=== PATIENT | male | born 1975 | race Caucasian/White ===

== ENCOUNTER 2022-03-04 20:39 | Observation (INO) | payer OTHER ==
[2022-03-04] MEDS ORDERED: SODIUM CHLORIDE 0.9% 1,000 ML IV STA (21:17)
[2022-03-04] MEDS ORDERED: ASPIRIN 325 MG TAB PO STA (21:18)
[2022-03-04 21:38] LABS: ALT 49 U/L (4-49); AST 74 U/L (17-59); African American GFR (CKD) >90 (>60 ml/min/1.73 sqM); Albumin 3.4 g/dL (3.5-5.0); Alkaline Phosphatase 90 U/L (38-126); Anion Gap 7 mmol/L; Blood Urea Nitrogen 18 mg/dL (9-20); Calcium 8.1 mg/dL (8.4-10.2); Carbon Dioxide 25 mmol/L (22-30); Chloride 104 mmol/L (98-107); Glucose 96 mg/dL (74-99); Magnesium 1.8 mg/dL (1.6-2.3); Non-African American GFR(CKD) >90 (>60 ml/min/1.73 sqM); Sodium 136 mmol/L (137-145); Total Bilirubin 0.6 mg/dL (0.2-1.3); Total Protein 6.3 g/dL (6.3-8.2)
[2022-03-04 21:39] LABS: Basophils % (A) 1 %; Eosinophils # (A) 0.1 k/uL (0-0.7); Eosinophils % (A) 2 %; HCT 38.7 % (39.0-53.0); HGB 12.4 gm/dL (13.0-17.5); Hypochromasia Slight; Lymphocytes # (A) 0.8 k/uL (1.0-4.8); Lymphocytes % (A) 22 %; MCH 27.6 pg (25.0-35.0); MCHC 31.9 g/dL (31.0-37.0); MCV 86.3 fL (80.0-100.0); Monocytes # (A) 0.2 k/uL (0-1.0); Monocytes % (A) 6 %; Neutrophils # (A) 2.5 k/uL (1.3-7.7); Neutrophils % (A) 68 %; Platelet Count 273 k/uL (150-450); RBC 4.49 m/uL (4.30-5.90); RDW 14.3 % (11.5-15.5); WBC 3.7 k/uL (3.8-10.6)
[2022-03-04 21:43] LABS: INR 0.9 (<1.2); Prothrombin Time 9.9 sec (9.0-12.0)
[2022-03-04 21:55] LABS: Potassium 5.1 mmol/L (3.5-5.1)
[2022-03-04 22:19] LABS: Partial Thromboplastin Time 20.5 sec (22.0-30.0)
--- NOTE | 2022-03-04 22:35 | XR ---
EXAMINATION TYPE: XR chest 2V DATE OF EXAM: 03/04/2022 COMPARISON: NONE HISTORY: Chest pain TECHNIQUE: 2 views FINDINGS: Heart and mediastinum are normal. Lungs are clear. Bony thorax is intact. There is some el evation of the right diaphragm. IMPRESSION: Elevated right diaphragm could relate to partial paralysis. Normal heart.
--- NOTE | 2022-03-04 22:56 | US ---
EXAMINATION TYPE: US venous doppler duplex LE RT DATE OF EXAM: 03/04/2022 10:47 PM COMPARISON: NONE CLINICAL HISTORY: IV drug use, palpable vein. Redness and warmth in right calf after drug use. SIDE PERFORMED: Right TECHNIQUE: The lower extremity deep venous system is examined utilizing real time linear array sonog silvia with graded compression, doppler sonography and color-flow sonography. VESSELS IMAGED: Common Femoral Vein Deep Femoral Vein Greater Saphenous Vein * Femoral Vein Popliteal Vein Small Saphenous Vein * Proximal Calf Veins (* superficial vessels) Right Leg: No evidence for DVT. Thrombus seen in the GSV distal thigh to mid calf, farther than 2 cm from the deep system. IMPRESSION: No evidence of deep vein thrombosis. There is superficial vein thrombosis in the long sap henous vein.
[2022-03-04] MEDS ORDERED: NALOXONE 0.4 MG/ML 1 ML VIAL IV PRN (23:09)
[2022-03-04] MEDS: SODIUM CHLORIDE 0.9% 1,000 ML IV SCH (23:30)
--- NOTE | 2022-03-05 03:35 | P.HPIM ---
History of Present Illness H&P Date: 03/04/22 The patient is a 46-year-old male with a PMH of polysubstance abuse, and multiple MIs with no stents who presents to the emergency room with complaints of chest discomfort. The patient states that he had presented to [facility] earlier today due to his multi-substance use including heroin, methamphetamine, fentanyl, and methadone, but was advised to go to the emergency room to be eval uated for chest discomfort. Patient reports that he began having the discomfort earlier today. He reports his last substance use was yesterday where he injected heroin and methamphetamine and possible cocaine use. Patient reported chest discomfort 5 out of 10, substernal, pressure-like, nonradiating, lasted for about an hour and then resolved spontaneously. Denied associated symptoms including nausea, shortness of breath, dizziness. The patient did report swelling and pain over his right leg, at the side of his IV drug injection yesterday. Denies fever, chills, cough, abdominal pain, diarrhea. Chest x-ray revealed an elevated right hemidiaphragm with possible paralysis with EKG showin g sinus rhythm at [address]/T-wave changes are as reviewed by me. Lower extremity Doppler did reveal a superficial vein thrombosis in the long saphenous vein of the right lower extremity. Laboratory evaluation revealed an AST of 74, and WBC count 3.7. Review of systems: Pertinent positives and negatives as discussed in HPI, a complete review of systems was performed and all other systems are negative. Physical examination: General: non toxic, no distress, appears at stated age, normal weight Derm: no unusual rashes/lesions, warm Head: atraumatic, normocephalic, symmetric Eyes: EOMI, no lid lag, anicteric sclera, pupils equal round reactive to light ENT: Nose and ears atraumatic Neck: No cervical lymphadenopathy, trachea midline, supple Mouth: no lip lesion, mucus membranes moist Cardiovascular: S1S2 reg, no murmur, positive dorsalis pedis pulse bilateral, no edema Lungs: CTA bilateral, no rhonchi, no rales, no accessory muscle use Abdominal: soft, nontender to palpation, no guarding Ext: muscle strength 5 out of 5 in all 4 extremities grossly, no gross muscle atrophy, no contractures, Neuro: CN II-XI grossly intact, no gross focal neuro deficits Psych: Alert, oriented, appropriate affect Assessment/plan Chest pain, rule out ACS -Cardiology consult -Cardiac monitoring -Trend troponin -Echocardiogram -Continue aspirin, statin Right lower extremity superficial phlebitis -Warm compresses -Pain control Polysubstance abuse -Advised on importance of cessation -Monitor for signs of withdrawal DVT prophylaxis -Heparin subcu The patient is admitted with an anticipated [] than 2 midnight stay for evaluation of []. CODE STATUS: Full Code Discussed with: Patient Anticipated discharge date: [] Anticipated discharge place: Home Past Medical History - Past Family History Father Family Medical History: Coronary Artery Disease (CAD) Medications and Allergies Allergies Allergy/AdvReac Type Severity Reaction Status Date / Time quetiapine [From Seroquel] Allergy Severe Unknown Verified 03/04/22 21:26 diphenhydramine Allergy Intermediate Rapid Verified 03/04/22 21:26 [From Benadryl] Heart Rate Physical Exam Vitals: Vital Signs Temp Pulse Resp BP Pulse Ox 03/04/22 20:49 98.1 F 81 18 143/82 100 Intake and Output 03/04/22 03/04/22 03/05/22 14:59 22:59 06:59 Other: Weight 81.193 kg Results CBC & Chem 7: 03/04/22 21:19 03/04/22 21:19 Labs: Abnormal Lab Results - Last 24 Hours (Table) 03/04/22 03/04/22 03/04/22 Range/Units 21:19 21:19 21:19 WBC 3.7 L (3.8-10.6) k/uL Hgb 12.4 L (13.0-17.5) gm/dL Hct 38.7 L (39.0-53.0) % Lymphocytes # 0.8 L (1.0-4.8) k/uL APTT 20.5 L (22.0-30.0) sec Sodium 136 L (137-145) mmol/L Calcium 8.1 L (8.4-10.2) mg/dL AST 74 H (17-59) U/L Albumin 3.4 L (3.5-5.0) g/dL
[2022-03-05] MEDS: ATORVASTATIN 80 MG TAB PO SCH ×2 (03:41→20:03)
[2022-03-05] MEDS ORDERED: CAFFEINE CITRATE 60 MG/3 ML VIAL IV PRN (08:05)
[2022-03-05] MEDS ORDERED: AMINOPHYLLINE 500 MG/20 ML VIAL IV PRN (08:05)
[2022-03-05] MEDS ORDERED: REGADENOSON 0.4 MG/5 ML SYRINGE IV PRN (08:05)
--- NOTE | 2022-03-05 08:13 | P.CRDCN ---
History of Present Illness History of present illness: HISTORY OF PRESENTING ILLNESS This is a pleasant 46-year-old with past medical history significant for family history of CAD, tobacco abuse, meth use, IV heroin use who presents secondary ch est pain for the last few years. He states he will get substernal chest pain associated with some diaphoresis and shortness breath usually lasting anywhere from 5-45 minutes. Sometimes this can be associated with exertion such as yesterday when he was walking up a flight of stairs. It occasionally radiates into his jaws. It can however occur when he is just sitting there. Denies any obvious association with IV drug use. Denies any fevers, chills. He does have family history of mom having multiple stents in her 40s and father dying of a heart attack in his 50s. He has not had prior workup before and symptoms have been getting somewhat worse and therefore resented to emergency department. Troponin 0.016 and less than 0.0122. EKG showing sinus rhythm with no significant ST or T wave inversions. REVIEW OF SYSTEMS At the time of my exam: CONSTITUTIONAL: Denies fever or chills. CARDIOVASCULAR: +chest pain, no shortness of breath, orthopnea, PND or palpitations. RESPIRATORY: Denies cough. GASTROINTESTINAL: Denies abdominal pain, diarrhea, constipation, nausea or vomiting. MUSCULOSKELETAL: Denies myalgias. NEUROLOGIC: Denies numbness, tingling or weakness. ENDOCRINE: Denies fatigue, weight change, polydipsia or polyurina. GENITOURINARY: Denies burning, hematuria or urgency with micturation. HEMATOLOGIC: Denies history of anemia or bleeding. PHYSICAL EXAMINATION Vital signs reviewed. CONSTITUTIONAL: No apparent distress. HEENT: Head is normocephalic. Pupils are equal, round. Sclerae anicteric. Mucous membranes of the mouth are moist. No JVD. No carotid bruit. CHEST EXAMINATION: Lungs are clear to auscultation. No chest wall tenderness is noted on palpation or with deep breathing. HEART EXAMINATION: Regular rate and rhythm. S1, S2 heard. No murmurs, gallops or rub. ABDOMEN: Soft, nontender. Positive bowel sounds. EXTREMITIES: 2+ peripheral pulses, no lower extremity edema and no calf tenderness. NEUROLOGIC EXAMINATION: Patient is awake, alert and oriented x3. ASSESSMENT 1. Atypical chest pain however some typical symptoms with exertion and with associated diaphoresis and shortness breath 2. Tobacco abuse 3. IV heroin use 4. Meth use 5. Family history of CAD PLAN Patient having some typical and some atypical symptoms. Troponin noted to be no rmal and EKG unrevealing. We will check echo to rule out any structural heart disease as well as any valvular disease with his history of IV drug use. We will check a Lexiscan stress test as he feels he cannot walk on treadmill. Discussed tobacco cessation, drug cessation. Further recommendations to follow. Past Medical History - Past Family History Father Family Medical History: Coronary Artery Disease (CAD) Medications and Allergies Home Medications Medication Instructions Recorded Confirmed Type Cephalexin [Keflex] 500 mg PO Q6HR 03/05/22 03/05/22 History Methadone [Dolophine] 40 mg PO DAILY 03/05/22 03/05/22 History Venlafaxine HCl [Effexor XR] 150 mg PO DAILY 03/05/22 03/05/22 History carBAMazepine [TEGretol] 400 mg PO TID 03/05/22 03/05/22 History Allergies Allergy/AdvReac Type Severity Reaction Status Date / Time quetiapine [From Seroquel] AdvReac Severe restlessnes Verified 03/05/22 07:12 s diphenhydramine AdvReac Intermediate Rapid Verified 03/05/22 07:09 [From Benadryl] Heart Rate Physical Exam Vitals: Vital Signs Temp Pulse Pulse Resp BP Pulse Ox 03/05/22 06:51 141/102 03/05/22 06:45 57 L 12 168/106 97 03/05/22 04:21 63 03/05/22 03:53 60 16 143/95 97 03/05/22 01:49 61 18 130/86 98 03/05/22 00:08 64 16 128/65 96 03/04/22 20:49 98.1 F 81 18 143/82 100 Intake and Output 03/04/22 03/05/22 03/05/22 22:59 06:59 14:59 Other: Weight 81.193 kg Results 03/04/22 21:19 03/04/22 21:19 Cardiac Enzymes 03/04/22 03/04/22 03/05/22 Range/Units 21:19 21:19 02:47 AST 74 H (17-59) U/L Troponin I 0.016 <0.012 (0.000-0.034) ng/mL 03/05/22 Range/Units 05:11 AST (17-59) U/L Troponin I <0.012 (0.000-0.034) ng/mL Coagulation 03/04/22 Range/Units 21:19 PT 9.9 (9.0-12.0) sec APTT 20.5 L (22.0-30.0) sec CBC 03/04/22 Range/Units 21:19 WBC 3.7 L (3.8-10.6) k/uL RBC 4.49 (4.30-5.90) m/uL Hgb 12.4 L (13.0-17.5) gm/dL Hct 38.7 L (39.0-53.0) % Plt Count 273 (150-450) k/uL Comprehensive Metabolic Panel 03/04/22 Range/Units 21:19 Sodium 136 L (137-145) mmol/L Potassium 5.1 (3.5-5.1) mmol/L Chloride 104 (98-107) mmol/L Carbon Dioxide 25 (22-30) mmol/L BUN 18 (9-20) mg/dL Creatinine 0.66 (0.66-1.25) mg/dL Glucose 96 (74-99) mg/dL Calcium 8.1 L (8.4-10.2) mg/dL AST 74 H (17-59) U/L ALT 49 (4-49) U/L Alkaline Phosphatase 90 (38-126) U/L Total Protein 6.3 (6.3-8.2) g/dL Albumin 3.4 L (3.5-5.0) g/dL Current Medications Generic Name Dose Route Start Last Admin Trade Name Freq PRN Reason Stop Dose Admin Atorvastatin Calcium 80 mg 03/05/22 03:34 03/05/22 03:41 Atorvastatin 80 Mg Tab PO Not Given HS MANNY Heparin Sodium (Porcine) 5,000 unit 03/05/22 08:00 Heparin Sodium,Porcine/Pf 5,000 Unit/0.5 Ml Syringe SQ Q8HR MANNY Sodium Chloride 1,000 mls @ 75 mls/hr 03/04/22 23:15 03/04/22 23:30 Saline 0.9% IV 75 mls/hr .[id number] MANNY Administration Naloxone HCl 0.2 mg 03/04/22 23:09 Naloxone 0.4 Mg/Ml 1 Ml Vial IV Q2M PRN Opioid Reversal Intake and Output 03/04/22 03/05/22 03/05/22 22:59 06:59 14:59 Other: Weight 81.193 kg 03/04/22 21:19 03/04/22 21:19
--- NOTE | 2022-03-05 12:10 | NM ---
EXAMINATION TYPE: NM stress lexiscan cardiolite DATE OF EXAM: 03/05/2022 COMPARISON: NONE HISTORY: 46-year-old male with chest pain TECHNIQUE: After the intravenous administration of 9.3 mCi Tc 99m Sestamibi - Cardiolite resting SPE CT images acquired 70 minutes post injection. The patient received 0.4mg Lexiscan, 25.7 mCi Tc 99m Sestamibi - Stress images obtained [address] injection FINDINGS: Review of stress and rest SPECT images demonstrates decreased perfusion along the mid to basal inferi or and inferoseptal wall on stress. The finding is not corroborated on Polar maps. Gated analysis jett ws normal wall motion with an estimated left ventricular ejection fraction of 48 %. TID is borderlin e elevated at 1.15. IMPRESSION: Equivocal reversibility along the mid to basal inferior and inferoseptal wall as there is no corrobor ating defect on the polar maps. Given that LVEF is mildly diminished at 48% and TID is borderline zana vated, consider further evaluation as clinically indicated.
[2022-03-05] MEDS: HEPARIN SODIUM,PORCINE/PF 5,000 UNIT/0.5 ML SYRINGE SQ SCH ×2 (12:15→15:35)
[2022-03-05] MEDS: METHADONE 10 MG TAB PO SCH (12:32)
[2022-03-05] MEDS: SODIUM CHLORIDE 0.9% 1,000 ML IV SCH (12:35)
[2022-03-05] MEDS: VENLAFAXINE HCL ER 150 MG CAP PO SCH (12:35)
--- NOTE | 2022-03-05 12:47 | CA ---
Lexiscan Nuclear Stress Test Report Name: Yosef Garza Exam Date: 03/05/2022 10:23 Exam Location: [facility] Stress Ht (in): 74 Wt (lb): 180 BSA: 2.08 Ordering Phys: Ed Braswell DO Referring Phys: TOBY, Technologist: Garrison Montgomery Age: 46 Gender: M : 1975 Procedure CPT: Indications: Reflex order-Stress test ICD-10 Codes: Patient History: Chest Pain and Vertigo Medications: Meds past 24 hrs: Pretest Chest Pain: STRESS TEST Lexiscan Protocol Exercise Duration (min:sec): 01:[address] Depressions (mm): Angina Score: Benedict Score: Resting HR (bpm): 62 Peak HR (bpm): 115 Resting BP (mmHg): 135 / 94 Peak BP (mmHg): 148 / 94 MPHR: 176 Target HR: 150 % MPHR: 65 METS: 1.0 Total Dose: Peak Dose: Atropine: Double Product: 28500 BP Response: Stress Termination: INFUSION COMPLETE Stress Symptoms: DIFFICULTY IN BREATHING Stress Summary: ECG ANALYSIS Resting ECG: Stress ECG: CONCLUSIONS At baseline EKG showed normal sinus rhythm, normal axis, no significant ST or T wave abnormalities. Patient recieved IV infusion of Lexiscan 0.4mg and at peak infusion EKG showed no significant change from baseline. Conclusions: 1. Normal EKG response to Lexiscan infusion 2. Nuclear imaging to be reported separately. Dr. Ed Braswell DO (Electronically Signed) Final Date: 05 March 2022 12:46
--- NOTE | 2022-03-05 13:53 | P.PN ---
Subjective Progress Note Date: 03/05/22 Principal diagnosis: chest pain Hospital Course: 46-year-old male with history of polysubstance abuse, IV drug use and multiple drug-induced MIs presenting with chest pain. His last substance use yesterday when he took heroin and methamphetamine and possible cocaine. Shortly after patient started to have chest discomfort which was substernal, pressure-like, nonradiating. The chest pain has now resolved. Chest x-ray showed elevated right hemidiaphragm with possible paralysis. EKG showed normal sinus rhythm without ST/T-wave abnormalities. Lower extremity Dopplers showed no evidence of DVT, but showed superficial vein thrombosis in long saphenous vein. Cardiology was consulted. Initial troponin was 0.016, and next 2 troponins were negative. Lexiscan stress test showed equivocal reversibility along the mid to basal inferior and inferior septal wall. LVEF mildly diminished at 48% and TID borderline elevated. Patient denies any further chest pain at the moment. Subjective: Patient seen and examined at bedside. No acute events overnight. She denies any further chest pain. He denies any palpitations, shortness of breath, abdominal pain. Pertinent positives and negatives as discussed above, a complete review of systems was performed and all other systems are negative. Vitals Signs Reviewed. General: nontoxic, no distress, appears at stated age Derm: warm, dry Head: atraumatic, normocephalic, symmetric Eyes: EOMI, no lid lag, anicteric sclera Mouth: no lip lesion, mucus membranes moist Cardiovascular: S1S2 reg, no murmur Lungs: CTA bilateral, no rhonchi, no rales , no accessory muscle use Abdominal: soft, nontender to palpation, no guarding, no appreciable organomegaly Ext: no gross muscle atrophy, no edema, no contractures Neuro: CN II-XI grossly intact, no focal neuro deficits Psych: Alert, oriented, appropriate affect Assessment and Plan: Chest pain, rule out ACS -Likely in the setting of substance abuse -Troponin negative -Telemetry -Echo pending -Cardiology consult -Lexiscan stress test abnormal - pending further radiology recommendations -Patient currently chest pain-free Right lower extremity superficial vein thrombosis -Likely in the setting of IV drug use -Warm compress -Pain control Polysubstance abuse -Counseled regarding cessation -Monitor for signs of withdrawal DVT ppx: Subcu heparin Code status: Full code Anticipated discharge place: Home Anticipated discharge time: Tomorrow Objective - Vital Signs Vital signs: Vital Signs Temp 98.7 F 03/05/22 12:21 Pulse 64 03/05/22 12:21 Resp 15 03/05/22 12:21 BP 135/91 03/05/22 12:21 Pulse Ox 99 03/05/22 12:21 FiO2 Intake & Output 03/04/22 03/05/22 03/05/22 18:59 06:59 18:59 Output Total 300 Balance -300 Weight 81.193 kg 81.193 kg Output: Urine 300 Other: Voiding Method Urinal - Labs CBC & Chem 7: 03/04/22 21:19 03/04/22 21:19 Labs: Abnormal Lab Results - Last 24 Hours (Table) 03/04/22 03/04/22 03/04/22 Range/Units 21:19 21:19 21:19 WBC 3.7 L (3.8-10.6) k/uL Hgb 12.4 L (13.0-17.5) gm/dL Hct 38.7 L (39.0-53.0) % Lymphocytes # 0.8 L (1.0-4.8) k/uL APTT 20.5 L (22.0-30.0) sec Sodium 136 L (137-145) mmol/L Calcium 8.1 L (8.4-10.2) mg/dL AST 74 H (17-59) U/L Albumin 3.4 L (3.5-5.0) g/dL
[2022-03-06] MEDS: SODIUM CHLORIDE 0.9% 1,000 ML IV SCH ×2 (00:06→16:50)
[2022-03-06] MEDS: HEPARIN SODIUM,PORCINE/PF 5,000 UNIT/0.5 ML SYRINGE SQ SCH ×3 (00:06→17:14)
--- NOTE | 2022-03-06 07:11 | CA ---
Transthoracic Echo Report Name: Yosef Garza Age: 46 Gender: M : 1975 Exam Date: 03/05/2022 14:06 Exam Location: [facility] Echo Ht (in): 72 Wt (lb): 179 Ordering Physician: Joan Hawley MD Attending/Referring Phys: Glove Brusher Gail Ochoa RDCS Procedure CPT: Indications: Chest Pain Cardiac Hx: Technical Quality: Technically difficult study Contrast 1: Total Dose (mL): Contrast 2: Total Dose (mL): MEASUREMENTS (Male / Female) Normal Values 2D ECHO LV Diastolic Diameter PLAX 4.3 cm 4.2 - 5.9 / 3.9 - 5.3 cm LV Systolic Diameter PLAX 2.6 cm IVS Diastolic Thickness 1.1 cm 0.6 - 1.0 / 0.6 - 0.9 cm LVPW Diastolic Thickness 0.8 cm 0.6 - 1.0 / 0.6 - 0.9 cm LV Relative Wall Thickness 0.4 LA Volume 84.4 cm??? 18 - 58 / 22 - 52 cm??? M-MODE Aortic Root Diameter MM 3.4 cm LA Systolic Diameter MM 1.8 cm LA Ao Ratio MM 0.5 AV Cusp Separation MM 2.4 cm DOPPLER AV Peak Velocity 75.2 cm/s AV Peak Gradient 2.3 mmHg LVOT Peak Velocity 61.7 cm/s LVOT Peak Gradient 1.5 mmHg MV Area PHT 2.6 cm??? Mitral E Point Velocity 75.2 cm/s Mitral A Point Velocity 55.5 cm/s Mitral E to A Ratio 1.4 MV Deceleration Time 293.1 ms FINDINGS Left Ventricle Mildly increased left ventricular wall thickness. Normal left ventricular systolic function with no obvious regional wall motion abnormalities. Left ventricular ejection fraction is estimated at 50-55 %. Right Ventricle Right ventricle not well visualized. Right Atrium Right atrium not well visualized. Left Atrium Moderate left atrial dilatation. Mitral Valve Mild mitral regurgitation. Aortic Valve No aortic valve stenosis or regurgitation. Tricuspid Valve Tricuspid valve not well visualized. Pulmonic Valve Pulmonic valve not well visualized. Pericardium No pericardial effusion. Aorta Normal size aortic root and proximal ascending aorta. CONCLUSIONS Previewed by: Dr. Ed Braswell DO (Electronically Signed) Final Date: 06 March 2022 07:10
[2022-03-06] MEDS: METHADONE 10 MG TAB PO SCH (07:49)
[2022-03-06] MEDS: VENLAFAXINE HCL ER 150 MG CAP PO SCH (07:50)
[2022-03-06] MEDS ORDERED: NITROGLYCERIN SL TABS 0.4 MG TAB SUBLINGUAL PRN (08:10)
[2022-03-06] MEDS ORDERED: ASPIRIN 325 MG TAB PO STA (08:10)
[2022-03-06] MEDS ORDERED: ATORVASTATIN 80 MG TAB PO STA (08:10)
[2022-03-06] MEDS ORDERED: ALPRAZolam 0.25 MG TAB PO PRN (08:10)
[2022-03-06] MEDS: SODIUM CHLORIDE 0.9% 1,000 ML in EMPTY BAG 1 BAG IV SCH ×2 (08:15→19:41)
--- NOTE | 2022-03-06 09:38 | P.PN ---
Subjective Progress Note Date: 03/06/22 HISTORY OF PRESENT ILLNESS: This is a pleasant 46-year-old with past medical history significant for family history of CAD, tobacco abuse, meth use, IV heroin use who presents secondary chest pain for the last few years. He states he will get substernal chest pain associated with some diaphoresis and shortness breath usually lasting anywhere from 5-45 minutes. Sometimes this can be associated with exertion such as yesterday when he was walking up a flight of stairs. It occasionally radiates into his jaws. It can however occur when he is just sitting there. Denies any obvious association with IV drug use. Denies any fevers, chills. He does have family history of mom having multiple stents in her 40s and father dying of a heart attack in his 50s. He has not had prior workup before and symptoms have been getting somewhat worse and therefore resented to emergency department. Troponin 0.016 and less than 0.0122. EKG showing sinus rhythm with no significant ST or T wave inversions. 03/06/2022 Patient examined this morning at the bedside. Patient denies any further episodes of chest pain or pressure. He denies shortness of breath. Ec hocardiogram completed revealing ejection fraction of 50-55% with mild mitral regurgitation. Lexiscan stress test completed revealing "equivocal reversibility along the mid to basal inferior and inferior septal wall as there is no corroborating defect, pull her maps. Given that KVEF is mildly diminished at 48% and 3 times a day as before Elevated, consider further evaluation as clinically indicated" per radiology dictation. Vital signs remain stable. PHYSICAL EXAM: VITAL SIGNS: Reviewed. GENERAL: Well-developed in no acute distress. NECK: Supple. No JVD or thyromegaly LUNGS: Respirations even and unlabored. Lungs essentially clear to auscultation bilaterally. HEART: Regular rate and rhythm. S1 and S2 heard. EXTREMITIES: Normal range of motion. No clubbing or cyanosis. Peripheral pulses intact. No lower extremity edema ASSESSMENT: 1. Atypical chest pain however some typical symptoms with exertion and with associated diaphoresis and shortness breath, with abnormal stress test 2. Tobacco abuse 3. IV heroin use 4. Meth use 5. Family history of CAD PLAN: Continue current cardiac medications Add aspirin 81mg daily Smoking cessation recommended. Nicotine patch added per patient request. Patient to undergo cardiac cath today with Dr. Braswell Further recommendations pending patient course Nurse practitioner note has been reviewed by physician. Signing provider agrees with the documented findings, assessment, and plan of care. Objective - Vital Signs Vital signs: Vital Signs Temp 98.0 F 03/06/22 03:11 Pulse 60 03/06/22 03:11 Resp 16 03/06/22 03:11 BP 123/75 03/06/22 03:11 Pulse Ox 97 03/06/22 03:11 FiO2 Intake & Output 03/05/22 03/06/22 03/06/22 18:59 06:59 18:59 Intake Total 418 Output Total 300 Balance 118 Weight 81.193 kg Intake: Oral 418 Output: Urine 300 Other: Voiding Method Urinal # Voids 1 2 - Labs CBC & Chem 7: 03/04/22 21:19 03/04/22 21:19
[2022-03-06] MEDS ORDERED: ASPIRIN 81 MG PO ONE (10:31)
[2022-03-06] MEDS ORDERED: IV FLUID CONTINUATION 1,000 ML IV ONE (10:31)
[2022-03-06] MEDS ORDERED: MIDAZOLAM 2 MG/2 ML VIAL IVP ONE (10:53)
[2022-03-06] MEDS ORDERED: fentaNYL (PF) 50 MCG/ML 2 ML AMP IV ONE (10:53)
[2022-03-06] MEDS ORDERED: LIDOCAINE 1% INJ 10MG/ML (30 ML VIAL-PF) SQ ONE (10:53)
[2022-03-06] MEDS ORDERED: VERAPAMIL SYRINGE (5 MG/10 ML) INTRAARTER ONE (10:57)
[2022-03-06] MEDS ORDERED: HEPARIN SODIUM 1,000 UN/ML (10ML VL) IV ONE (11:00)
[2022-03-06] MEDS ORDERED: IOPAMIDOL-370 125ML BTL INJ ONE (11:07)
[2022-03-06] MEDS: NICOTINE 14MG/24HR PATCH TRANSDERM SCH (12:04)
[2022-03-06] MEDS: ASPIRIN 81 MG PO SCH (12:05)
[2022-03-06 12:29] LABS: African American GFR (CKD) >90 (>60 ml/min/1.73 sqM); Anion Gap 7 mmol/L; Blood Urea Nitrogen 12 mg/dL (9-20); Calcium 8.3 mg/dL (8.4-10.2); Carbon Dioxide 25 mmol/L (22-30); Chloride 102 mmol/L (98-107); Glucose 88 mg/dL (74-99); Non-African American GFR(CKD) >90 (>60 ml/min/1.73 sqM); Sodium 134 mmol/L (137-145)
[2022-03-06] MEDS: carBAMazepine 200 MG TAB PO SCH ×3 (13:36→20:39)
--- NOTE | 2022-03-06 15:23 | P.PN ---
Subjective Progress Note Date: 03/06/22 Principal diagnosis: chest pain Hospital Course: 46-year-old male with history of polysubstance abuse, IV drug use and multiple drug-induced MIs presenting with chest pain. His last substance use yesterday when he took heroin and methamphetamine and possible cocaine. Shortly after patient started to have chest discomfort which was substernal, pressure-like, nonradiating. The chest pain has now resolved. Chest x-ray showed elevated right hemidiaphragm with possible paralysis. EKG showed normal sinus rhythm without ST/T-wave abnormalities. Lower extremity Dopplers showed no evidence of DVT, but showed superficial vein thrombosis in long saphenous vein. Cardiology was consulted. Initial troponin was 0.016, and next 2 troponins were negative. Lexiscan stress test showed equivocal reversibility along the mid to basal inferior and inferior septal wall. LVEF mildly diminished at 48% and TID borderline elevated. Patient denies any further chest pain at the moment. Subjective: Patient seen and examined at bedside. No acute events overnight. She denies any further chest pain. He denies any palpitations, shortness of breath, abdominal pain. Pertinent positives and negatives as discussed above, a complete review of systems was performed and all other systems are negative. Vitals Signs Reviewed. General: nontoxic, no distress, appears at stated age Derm: warm, dry Head: atraumatic, normocephalic, symmetric Eyes: EOMI, no lid lag, anicteric sclera Mouth: no lip lesion, mucus membranes moist Cardiovascular: S1S2 reg, no murmur Lungs: CTA bilateral, no rhonchi, no rales , no accessory muscle use Abdominal: soft, nontender to palpation, no guarding, no appreciable organomegaly Ext: no gross muscle atrophy, no edema, no contractures Neuro: CN II-XI grossly intact, no focal neuro deficits Psych: Alert, oriented, appropriate affect Assessment and Plan: Chest pain, rule out ACS -Likely in the setting of substance abuse -Troponin negative -Telemetry -Echo LVEF 50-55% -Cardiology consult -Lexiscan stress test abnormal - cardiac cath today -Patient currently chest pain-free Right lower extremity superficial vein thrombosis -Likely in the setting of IV drug use -Warm compress -Pain control Polysubstance abuse -Counseled regarding cessation -Monitor for signs of withdrawal DVT ppx: Subcu heparin Code status: Full code Anticipated discharge place: Home Anticipated discharge time: Tomorrow Objective - Vital Signs Vital signs: Vital Signs Temp 97.9 F 03/06/22 11:23 Pulse 60 03/06/22 14:55 Resp 16 03/06/22 14:55 BP 111/67 03/06/22 14:55 Pulse Ox 94 L 03/06/22 14:55 FiO2 Intake & Output 03/05/22 03/06/22 03/06/22 18:59 06:59 18:59 Intake Total 418 168 Output Total 300 600 Balance 118 -432 Weight 81.193 kg Intake: IV 50 Oral 418 118 Output: Urine 300 600 Other: Voiding Method Urinal Toilet # Voids 1 2 - Labs CBC & Chem 7: 03/04/22 21:19 03/06/22 11:32 Labs: Abnormal Lab Results - Last 24 Hours (Table) 03/06/22 Range/Units 11:32 Sodium 134 L (137-145) mmol/L Creatinine 0.56 L (0.66-1.25) mg/dL Calcium 8.3 L (8.4-10.2) mg/dL
--- NOTE | 2022-03-06 19:26 | P.CARDCATH ---
Description of Procedure: PROCEDURES PERFORMED: Left heart catheterization, bilateral coronary angiography INDICATION: Abnormal stress test CONSENT:I have discussed the risks, benefits and alternative therapies for the above-mentioned procedure and for both sedation/analgesia as well as necessary blood product administration, if indicated, as they pertain to this patient. The patient has indicated understanding and acceptance of the risks and procedures discussed. PROCEDURE: After the risks, benefits and alternatives of the above mentioned procedure explained in detail with the patient, informed consent was obtained. Patient was taken to the catheterization lab and prepped and draped in usual fashion. 1% lidocaine was used to anesthetize the right radial artery. A 6- [place]an sheath was placed in the right radial artery using modified Seldinger technique. Left coronary angiography was performed with a 5-[place] JL 3.5 catheter and right coronary angiography was performed with a 5-[place] JR5 catheter in various views. A 5-[place] FR5 catheter was inserted into the left ventricle and pressure measurements were obtained. The right radial sheath was removed and a TR band was placed with hemostasis achieved. The patient tolerated the procedure well. Patient was transported back to the post catheterization holding area in stable condition. Conscious Sedation: Patient was monitored under the direct supervision of vision of myself for conscious sedation using Versed and fentanyl for a total duration of 15 minutes HEMODYNAMICS: Aortic: 95/64 LV: 91/12, LVEDP 13 SELECTIVE CORONARY ARTERIOGRAPHY: LEFT MAIN: The left main is a large caliber vessel which bifurcates into the LAD and circumflex. There is no significant stenosis. LEFT ANTERIOR DESCENDING CORONARY ARTERY: LAD is a large caliber vessel which wraps around to the apex. There is no significant stenosis. LEFT CIRCUMFLEX CORONARY ARTERY: Left circumflex is a moderate to large caliber vessel without significant stenosis. The circumflex gives off a PDA and is dominant. RIGHT CORONARY ARTERY: The right coronary artery is a small caliber vessel which gives off an acute marginal branch and is nondominant. There is no significant stenosis. FINAL IMPRESSION: 1. Normal coronary arteries as described above. 2. Normal left sided filling pressures PLAN: 1. Aggressive risk factor modification per most recent ACC/AHA guidelines. 2. Follow-up in the office in 1-2 weeks.
[2022-03-06] MEDS: ATORVASTATIN 80 MG TAB PO SCH (20:39)
[2022-03-06] MEDS: ALPRAZolam 0.5 MG TAB PO PRN (20:39)
[2022-03-07] MEDS: HEPARIN SODIUM,PORCINE/PF 5,000 UNIT/0.5 ML SYRINGE SQ SCH ×2 (05:08→07:40)
[2022-03-07] MEDS: SODIUM CHLORIDE 0.9% 1,000 ML IV SCH (05:08)
[2022-03-07] MEDS ORDERED: HEPARIN SODIUM,PORCINE 10,000 UNIT in SODIUM CHLORIDE 0.9% 1,000 ML IRRIGATION PRN (07:00)
[2022-03-07] MEDS ORDERED: HEPARIN SODIUM,PORCINE 2,500 UNIT in SODIUM CHLORIDE 0.9% 250 ML IRRIGATION PRN (07:00)
[2022-03-07] MEDS: METHADONE 10 MG TAB PO SCH (07:38)
[2022-03-07] MEDS: NICOTINE 14MG/24HR PATCH TRANSDERM SCH (07:38)
[2022-03-07] MEDS: carBAMazepine 200 MG TAB PO SCH (07:39)
[2022-03-07] MEDS: VENLAFAXINE HCL ER 150 MG CAP PO SCH (07:40)
[2022-03-07] MEDS: ASPIRIN 81 MG PO SCH (07:40)
[2022-03-07] MEDS: ALPRAZolam 0.5 MG TAB PO PRN ×2 (07:43→13:46)
[2022-03-07 07:55] VITALS: BP 125/77; PULSE 66; RESP 18; TEMP 97.9
--- NOTE | 2022-03-07 09:20 | P.DS ---
Providers Date of admission: 03/05/22 01:29 Expected date of discharge: 03/07/22 Attending physician: Joan Hawley MD Consults: 03/05/22 03:35 Consult Physician Urgent Consulting Provider: Chintan Barriga Consult Reason/Comments: Chest pain Do you want consulting provider notified?: Yes Primary care physician: Stated None Hospital Course: Discharge Diagnosis: Chest pain Abnormal stress test Right lower extremity superficial vein thrombosis IV drug use Polysubstance abuse Hospital Course: 46-year-old male with history of polysubstance abuse, IV drug use, multiple d rug-induced MIs presented with chest pain. His chest pain started shortly after his last substance use, which included heroin, amphetamines, possible cocaine. EKG showed normal sinus rhythm without ST-T wave abnormalities. Chest x-ray showed elevated right hemidiaphragm with possible paralysis. Initial troponin was 0.016, but next 2 troponins were negative. Cardiology was consulted. A Lexiscan stress test showed equivocal reversibility along the mid to basal inferior and inferior septal wall. LVEF was mildly diminished at 48%. Due to abnormal stress test, patient had a coronary angiogram. Heart cath showed normal coronary arteries and normal left-sided pressures. At the time of discharge, patient is chest pain-free. Patient also had lower extremity Dopplers that showed no signs of DVT, but showed superficial vein thrombosis of long saphenous vein on the right side. Recommended to use warm compress. Patient seen and examined at bedside.[] Vital signs reviewed and stable. General: nontoxic, no distress, appears at stated age Derm: warm, dry Head: atraumatic, normocephalic, symmetric Eyes: EOMI, no lid lag, anicteric sclera Mouth: no lip lesion, mucus membranes moist Cardiovascular: S1S2 reg, no murmur Lungs: CTA bilateral, no rhonchi, no rales , no accessory muscle use Abdominal: soft, nontender to palpation, no guarding, no appreciable organomegaly Ext: no gross muscle atrophy, no edema, no contractures Neuro: CN II-XI grossly intact, no focal neuro deficits Psych: Alert, oriented, appropriate affect A total of 38 minutes of time were spent preparing this complex discharge summary. Patient was discharged on 03/07/22 at 7:17. Patient Condition at Discharge: Stable Plan - Discharge Summary New Discharge Prescriptions: Continue Methadone [Dolophine] 40 mg PO DAILY carBAMazepine [TEGretol] 400 mg PO TID Venlafaxine HCl [Effexor XR] 150 mg PO DAILY Discontinued Cephalexin [Keflex] 500 mg PO Q6HR Discharge Medication List Methadone [Dolophine] 40 mg PO DAILY 03/05/22 [History] Venlafaxine HCl [Effexor XR] 150 mg PO DAILY 03/05/22 [History] carBAMazepine [TEGretol] 400 mg PO TID 03/05/22 [History] Follow up Appointment(s)/Referral(s): None,Stated [Primary Care Provider] - 1 Week Patient Instructions/Handouts: Chest Pain (DC), Polysubstance Abuse (ED) Activity/Diet/Wound Care/Special Instructions: Please see PCP in 1-2 days. Discharge Disposition: HOME SELF-CARE
--- NOTE | 2022-03-07 10:25 | P.PN ---
Subjective Progress Note Date: 03/07/22 HISTORY OF PRESENT ILLNESS: This is a pleasant 46-year-old with past medical history significant for family history of CAD, tobacco abuse, meth use, IV heroin use who presents secondary chest pain for the last few years. He states he will get substernal chest pain associated with some diaphoresis and shortness breath usually lasting anywhere from 5-45 minutes. Sometimes this can be associated with exertion such as yesterday when he was walking up a flight of stairs. It occasionally radiates into his jaws. It can however occur when he is just sitting there. Denies any obvious association with IV drug use. Denies any fevers, chills. He does have family history of mom having multiple stents in her 40s and father dying of a heart attack in his 50s. He has not had prior workup before and symptoms have been getting somewhat worse and therefore resented to emergency department. Troponin 0.016 and less than 0.0122. EKG showing sinus rhythm with no significant ST or T wave inversions. 03/06/2022 Patient examined this morning at the bedside. Patient denies any further episodes of chest pain or pressure. He denies shortness of breath. Ec hocardiogram completed revealing ejection fraction of 50-55% with mild mitral regurgitation. Lexiscan stress test completed revealing "equivocal reversibility along the mid to basal inferior and inferior septal wall as there is no corroborating defect, pull her maps. Given that KVEF is mildly diminished at 48% and 3 times a day as before Elevated, consider further evaluation as clinically indicated" per radiology dictation. Vital signs remain stable. 03/07/2022 Patient is status post cardiac catheterization with Dr. Braswell revealing normal coronary arteries. Patient examined this morning at the bedside. He denies any further episodes of chest pain or pressure. Denies shortness of br eath. Vital signs are stable. PHYSICAL EXAM: VITAL SIGNS: Reviewed. GENERAL: Well-developed in no acute distress. NECK: Supple. No JVD or thyromegaly LUNGS: Respirations even and unlabored. Lungs essentially clear to auscultation bilaterally. HEART: Regular rate and rhythm. S1 and S2 heard. EXTREMITIES: Normal range of motion. No clubbing or cyanosis. Peripheral pulses intact. No lower extremity edema ASSESSMENT: 1. Atypical chest pain however some typical symptoms with exertion and with associated diaphoresis and shortness breath, with abnormal stress test 2. Tobacco abuse 3. IV heroin use 4. Meth use 5. Family history of CAD PLAN: Continue current cardiac medications Patient is stable for discharge home today from a cardiac standpoint Nurse practitioner note has been reviewed by physician. Signing provider agrees with the documented findings, assessment, and plan of care. Objective - Vital Signs Vital signs: Vital Signs Temp 97.9 F 03/07/22 07:25 Pulse 66 03/07/22 07:25 Resp 18 03/07/22 07:25 BP 125/77 03/07/22 07:25 Pulse Ox 96 03/07/22 07:25 FiO2 Intake & Output 03/06/22 03/07/22 03/07/22 18:59 06:59 18:59 Intake Total 286 Output Total 600 Balance -314 Intake: IV 50 Oral 236 Output: Urine 600 Other: Voiding Method Toilet Toilet Toilet # Voids 2 - Labs CBC & Chem 7: 03/04/22 21:19 03/06/22 11:32 Labs: Abnormal Lab Results - Last 24 Hours (Table) 03/06/22 Range/Units 11:32 Sodium 134 L (137-145) mmol/L Creatinine 0.56 L (0.66-1.25) mg/dL Calcium 8.3 L (8.4-10.2) mg/dL
[2022-03-07] MEDS: SODIUM CHLORIDE 0.9% 1,000 ML in EMPTY BAG 1 BAG IV SCH (11:57)
== END 2022-03-07 14:21 | disposition home or self-care (01) ==
LOC: EC 20:39 → 6NMEDSUR 03-05 01:29
PROVIDERS: ADMIT Internal Medicine; ATTEND Internal Medicine
DX: R07.89 Other chest pain (principal); R94.39 Abnormal result of other cardiovascular function study; I82.811 Embolism and thrombosis of superficial veins of right lower extremity; F11.90 Opioid use, unspecified, uncomplicated; F15.90 Other stimulant use, unspecified, uncomplicated; I25.2 Old myocardial infarction; Z72.0 Tobacco use; Z79.899 Other long term (current) drug therapy; Z82.49 Family history of ischemic heart disease and other diseases of the circulatory system
CPT/HCPCS: 96372 ×2; 96374; 96361; 99285; 36415; 93005; 93017; 93306; 93458; 80053; 80048; 83735; 84484 ×2; 85025; 85610; 85730; 71046; 93971; 78452; G0378 ×3; C1769; C1894; A9500; S4990 ×2; J2250; J2001; J3010; J1644 ×3; S0109 ×3; J2785; Q9967

== ENCOUNTER 2022-03-12 12:22 | Emergency (ER) | payer OTHER ==
[2022-03-12] MEDS ORDERED: KETOROLAC 15 MG/ML 1 ML VIAL IVP STA (12:54)
[2022-03-12 13:05] LABS: Basophils # (A) 0.1 k/uL (0-0.2); Basophils % (A) 2 %; Eosinophils # (A) 0.1 k/uL (0-0.7); Eosinophils % (A) 3 %; HCT 43.4 % (39.0-53.0); HGB 14.1 gm/dL (13.0-17.5); Lymphocytes # (A) 1.7 k/uL (1.0-4.8); Lymphocytes % (A) 38 %; MCH 28.1 pg (25.0-35.0); MCHC 32.4 g/dL (31.0-37.0); MCV 86.6 fL (80.0-100.0); Mean Platelet Volume 7.2; Monocytes # (A) 0.3 k/uL (0-1.0); Monocytes % (A) 7 %; Neutrophils # (A) 2.2 k/uL (1.3-7.7); Neutrophils % (A) 48 %; Platelet Count 338 k/uL (150-450); RBC 5.01 m/uL (4.30-5.90); RDW 14.4 % (11.5-15.5); WBC 4.5 k/uL (3.8-10.6)
[2022-03-12 13:12] LABS: Appearance,Urine Clear (Clear); Bilirubin,Urine Negative (Negative); Blood,Urine Negative (Negative); Color,Urine Yellow; Glucose,Urine (UA) Negative (Negative); Ketones,Urine Negative (Negative); Leukocyte Esterase,Urine Negative (Negative); Nitrite,Urine Negative (Negative); PH, Urine 6.5 (5.0-8.0); Protein,Urine Negative (Negative); Specific Gravity,Urine 1.017 (1.001-1.035); Urobilinogen,Urine <2.0 mg/dL (<2.0)
--- NOTE | 2022-03-12 13:14 | XR ---
EXAMINATION TYPE: XR chest 2V DATE OF EXAM: 03/12/2022 1:10 PM COMPARISON: Chest radiographs from 03/04/2022. TECHNIQUE: XR chest 2V Frontal and lateral views of the chest. CLINICAL INDICATION:Male, 46 years old with history of Chest Pain; FINDINGS: Lungs/Pleura: There is no evidence of pleural effusion, focal consolidation, or pneumothorax. Elevat ion of the right hemidiaphragm redemonstrated. Pulmonary vascularity: Unremarkable. Heart/mediastinum: Cardiomediastinal silhouette is unremarkable. Musculoskeletal: No acute osseous pathology. IMPRESSION: 1. No acute cardiopulmonary disease/process. 2. Elevation of the right hemidiaphragm redemonstrated and could relate to diaphragm paralysis. This can be further evaluated with sniff test as clinically indicated.
[2022-03-12 13:19] LABS: ALT 67 U/L (4-49); AST 53 U/L (17-59); African American GFR (CKD) >90 (>60 ml/min/1.73 sqM); Albumin 4.2 g/dL (3.5-5.0); Alkaline Phosphatase 102 U/L (38-126); Anion Gap 11 mmol/L; Blood Urea Nitrogen 19 mg/dL (9-20); Calcium 8.9 mg/dL (8.4-10.2); Carbon Dioxide 25 mmol/L (22-30); Chloride 99 mmol/L (98-107); Glucose 80 mg/dL (74-99); Non-African American GFR(CKD) >90 (>60 ml/min/1.73 sqM); Sodium 135 mmol/L (137-145); Total Bilirubin 0.3 mg/dL (0.2-1.3); Total Protein 7.4 g/dL (6.3-8.2)
[2022-03-12 13:21] LABS: INR 0.9 (<1.2); Partial Thromboplastin Time 23.8 sec (22.0-30.0); Prothrombin Time 9.9 sec (9.0-12.0)
[2022-03-12 13:31] LABS: Potassium 5.2 mmol/L (3.5-5.1)
[2022-03-12] MEDS ORDERED: cefTRIAXone IN SWFI 1,000 MG/10 ML SYRINGE IVP STA (13:50)
[2022-03-12] MEDS ORDERED: AZITHROMYCIN 250 MG TAB PO STA (13:52)
--- NOTE | 2022-03-12 13:54 | ED ---
Chest Pain HPI - General Chief Complaint: Chest Pain Stated Complaint: Chest pain Time Seen by Provider: 03/12/22 12:36 Source: patient, EMS, RN notes reviewed Mode of arrival: EMS Limitations: no limitations - History of Present Illness Initial Comments: 46-year-old male presents emergency department to complaint of chest pain. Patient had recent hospitalization for similar complaints with cardiac cath no acute findings. 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 Patient denies any abdominal pain no back pain no shortness of breath. Patient is clinically urinary frequency and dysuria. Patient believes he may have an infection he has had a history of STDs, UTIs. Patient denies any fever or chills back pain. - Related Data Home Medications Medication Instructions Recorded Confirmed Methadone [Dolophine] 40 mg PO DAILY 03/05/22 03/05/22 Venlafaxine HCl [Effexor XR] 150 mg PO DAILY 03/05/22 03/05/22 carBAMazepine [TEGretol] 400 mg PO TID 03/05/22 03/05/22 Previous Rx's Medication Instructions Recorded Omeprazole [PriLOSEC] 40 mg PO DAILY #14 cap 03/12/22 Allergies Allergy/AdvReac Type Severity Reaction Status Date / Time quetiapine [From Seroquel] AdvReac Severe restlessnes Verified 03/12/22 12:32 s diphenhydramine AdvReac Intermediate Rapid Verified 03/12/22 12:32 [From Benadryl] Heart Rate Review of Systems ROS Statement: Those systems with pertinent positive or pertinent negative responses have been documented in the HPI. ROS Other: All systems not noted in ROS Statement are negative. Past Medical History Past Medical History: Seizure Disorder Additional Past Medical History / Comment(s): TBI, Liver failure, AKF History of Any Multi-Drug Resistant Organisms: MRSA Additional Past Surgical History / Comment(s): Orbital fracture/repair, Left knee Past Anesthesia/Blood Transfusion Reactions: No Reported Reaction Past Psychological History: ADD/ADHD, Anxiety, Bipolar, Depression, PTSD Smoking Status: Current every day smoker Past Drug Use History: Cocaine, Heroin, IV Drug Use, Methamphetamine - Past Family History Father Family Medical History: Coronary Artery Disease (CAD) General Exam Limitations: no limitations General appearance: alert, in no apparent distress Head exam: Present: atraumatic, normocephalic, normal inspection Eye exam: Present: normal appearance, PERRL, EOMI. Absent: scleral icterus, conjunctival injection, periorbital swelling ENT exam: Present: normal exam, mucous membranes moist Neck exam: Present: normal inspection, full ROM. Absent: tenderness, meningismus, lymphadenopathy Respiratory exam: Present: normal lung sounds bilaterally. Absent: respiratory distress, wheezes, rales, rhonchi, stridor Cardiovascular Exam: Present: regular rate, normal rhythm, normal heart sounds. Absent: systolic murmur, diastolic murmur, rubs, gallop, clicks GI/Abdominal exam: Present: soft, normal bowel sounds. Absent: distended, tenderness, guarding, rebound, rigid Back exam: Present: normal inspection Course Vital Signs 03/12/22 03/12/22 03/12/22 12:26 12:30 14:19 Pulse Rate 82 79 Pulse Rate [ 89 Cyanide Pot Hardener ] Respiratory 16 18 Rate Blood Pressure 123/78 O2 Sat by Pulse 99 99 Oximetry Chest Pain MDM - MDM I did review prior reports cardiac cath shows normal coronary arteries,was cleared from cardiac standpoint. Patient does have current complaints of chest pain symptoms of been present for over 12 hours with no acute changes and troponin. Patient has urinary frequency and dysuria with no evidence UTI though possibly sti patient was given Rocephin, Zithromax. Patient will be discharged with and antacids for his reflux return parameters were discussed. Disposition Clinical Impression: Atypical chest pain, Urinary frequency Disposition: HOME SELF-CARE Condition: Stable Instructions (If sedation given, give patient instructions): Chest Pain (ED) Additional Instructions: Please return to the Emergency Department if symptoms worsen or any other concerns. Prescriptions: Omeprazole [PriLOSEC] 40 mg PO DAILY #14 cap Is patient prescribed a controlled substance at d/c from ED?: No Referrals: None,Stated [Primary Care Provider] - 1-2 days Time of Disposition: 13:54
[2022-03-12 14:20] VITALS: PULSE 79; RESP 18
[2022-03-12 14:21] VITALS: BP 123/78
[2022-03-13 15:15] LABS: C. trachomatis,PCR Negative (Neg,Equiv); Chlamydia trachomatis Source Urine; N. gonorrhoeae,PCR Negative (Neg,Equiv); Neisseria Source Urine
== END 2022-03-12 14:37 | disposition home or self-care (01) ==
LOC: EC 12:22
DX: R07.89 Other chest pain (principal); R35.0 Frequency of micturition; F41.9 Anxiety disorder, unspecified; F31.9 Bipolar disorder, unspecified; F17.200 Nicotine dependence, unspecified, uncomplicated; Z88.8 Allergy status to other drugs, medicaments and biological substances; Z79.899 Other long term (current) drug therapy
CPT/HCPCS: 36415; 93005; 80053; 83735; 84484; 85025; 85610; 85730; 81003; 87491; 87591; 71046; 99285; 96374; 96375; J0696; J1885